=== PATIENT | female | born 1995 | race Caucasian/White ===

== ENCOUNTER 2021-11-28 06:14 | Inpatient (IN) ==
[2021-11-28] MEDS ORDERED: PITOCIN ONE (06:39)
[2021-11-28] MEDS ORDERED: D5 1/2 NS 1,000 ML 1,000 ML IV ONE (06:40)
[2021-11-28] MEDS ORDERED: D5 LR + PITOCIN 10 UNITS/L 10 UNITS/1,000 ML BAG IV ONE (06:40)
[2021-11-28] MEDS ORDERED: BETADINE SOLN ONE ×2 (06:40→18:35)
[2021-11-28] MEDS ORDERED: D5 1/2 NS 1,000 mL + PITOCIN 20 UNITS/L IV 20 UNITS/1,000 ML BAG IV ONE (06:40)
[2021-11-28] MEDS ORDERED: NORMODYNE INJ 20 MG VIAL IVP ONE (07:00)
--- NOTE | 2021-11-28 07:25 | DR.OB ---
OB Quick Note - Assessment/Plan Assessment/Plan: L&D 11/28/21 at 7:00am S-No complaint. O-Afebrile,VSS LXF=415 with good LTV, +accel, no decel. CTX=none CVX=3cm/50%/-1/VTX AROM with clear fluid. IUPC and FSE placed. A-IUP at 38 5/7 weeks for induction CHTN P-Begin pitocin induction F/U preeclamptic labs Anticipate
[2021-11-28] MEDS ORDERED: NORMODYNE INJ 20 MG VIAL ONE (07:33)
[2021-11-28] MEDS ORDERED: MORPHINE SULFATE INJ 2 MG INJ IVP PRN (07:55)
[2021-11-28] MEDS ORDERED: D5 1/2 NS 1,000 ML 1,000 ML IV SCH (07:55)
[2021-11-28] MEDS ORDERED: PHENERGAN INJ 25 MG IM PRN ×2 (07:55→13:00)
[2021-11-28] MEDS ORDERED: NUBAIN INJ 200 MG VIAL MULTIDOSE IVP PRN (07:55)
[2021-11-28] MEDS ORDERED: D5 LR + PITOCIN 10 UNITS/L 10 UNITS/1,000 ML BAG IV PRN (07:55)
[2021-11-28] MEDS ORDERED: REGLAN INJ 10 MG VIAL IVP PRN (07:55)
[2021-11-28] MEDS ORDERED: PITOCIN IVP ONE (07:55)
[2021-11-28] MEDS ORDERED: STADOL INJ IVP PRN (07:56)
[2021-11-28] MEDS ORDERED: EPHEDRINE SULFATE INJ ONE (08:47)
[2021-11-28] MEDS ORDERED: NAROPIN 0.2% 400 MG/200 ML BAG 200 ML ONE (08:49)
[2021-11-28] MEDS ORDERED: FENTANYL VIAL INJ 100 mcg ONE (08:49)
[2021-11-28] MEDS ORDERED: LR 1,000 ML IV 1,000 ML IV ONE (08:49)
[2021-11-28] MEDS ORDERED: REGLAN INJ 10 MG VIAL ONE (08:50)
[2021-11-28 09:00] LABS: URIC ACID 6.5 mg/dL (2.6-6.0)
[2021-11-28] MEDS ORDERED: NORMODYNE INJ 20 MG VIAL IVP PRN (09:06)
[2021-11-28] MEDS ORDERED: NS 500 ML IV 500 ML IV ONE (09:52)
--- NOTE | 2021-11-28 13:00 | DR.OB ---
OB Quick Note - Assessment/Plan Assessment/Plan: Delivery Note TRANSPORTATION JOB TITLES 11/28/21 at 12:39pm Patient complete and pushing. Head delivered over intact perineum. No nuchal cord. Nose and mouth bulb suctioned. Body delivered over intact perineum. Cord clamped x 2 and cut. Infant handed to attendant. Cord sent for gases. Placenta delivered spontaneously / intact / 3 vessel cord. No CVX tears noted. A second degree midline tear noted and repaired with 0-vicryl in usual fashion. Viable female , VTX/OA, wt=7'3" and 8/9, stable to NBN. Mother stable to NBN. PGF=[id number].
[2021-11-28] MEDS: D5 1/2 NS 1,000 ML 1,000 ML with PITOCIN 20 UNITS IV SCH ×4 (13:21→20:56)
[2021-11-28] MEDS ORDERED: AMBIEN PO PRN (15:36)
[2021-11-28] MEDS ORDERED: ADACEL or BOOSTRIX TDaP VACCINE IM ONE (15:36)
[2021-11-28] MEDS ORDERED: MILK OF MAGNESIA PO PRN (15:36)
[2021-11-28] MEDS: DERMOPLAST PAIN RELIEF SPRAY TOP PRN (18:36)
[2021-11-28] MEDS: MOTRIN TAB 800 MG PO PRN (20:51)
[2021-11-28] MEDS: NORMODYNE TAB 200 MG PO SCH (20:53)
[2021-11-29 04:54] LABS: HEMATOCRIT 31.7 % (36.0-47.0); HEMOGLOBIN 10.4 g/dL (12.0-16.0)
[2021-11-29] MEDS: D5 1/2 NS 1,000 ML 1,000 ML with PITOCIN 20 UNITS IV SCH ×4 (06:12→13:08)
[2021-11-29] MEDS ORDERED: PRENATAL PLUS PO SCH (09:00)
[2021-11-29] MEDS: NORMODYNE TAB 200 MG PO SCH (09:10)
[2021-11-29] MEDS: MOTRIN TAB 800 MG PO PRN (09:10)
[2021-11-29 13:12] VITALS: BP 146/80
[2021-11-29] MEDS: DERMOPLAST PAIN RELIEF SPRAY TOP PRN (15:18)
== END 2021-11-29 15:25 | disposition home or self-care (01) | DRG 807 ==
LOC: LD 06:14 → MED/SURG 14:36
PROVIDERS: ADMIT Specialist; ATTEND Specialist